=== PATIENT | female | born 1970 | race Two or more races ===

== ENCOUNTER 2023-05-29 11:07 | Outpatient (CLI) | payer OTHER | END 2023-05-29 11:13 | disposition home or self-care (01) | LOC: RAD 11:07 | PROVIDERS: ATTEND Orthopaedic Surgery | DX: M25.562 Pain in left knee (principal); M25.571 Pain in right ankle and joints of right foot ==

== ENCOUNTER 2024-06-17 09:34 | Emergency (ER) | payer OTHER ==
[~2024-06-17] VITALS: Ht 157.5 cm; Wt 83.9 kg
[2024-06-17 09:37] VITALS: BP 113/75; O2SAT 100
[2024-06-17] MEDS ORDERED: ZESTRIL20 MG (09:37)
[2024-06-17] MEDS ORDERED: 0.9 % SODIUM CHLORIDE 1,000 ML IV SCH (10:00)
[2024-06-17 10:13] LABS: HEMATOCRIT 41.3 % (36.0-45.00); HEMOGLOBIN 13.9 g/dL (12.0-15.00); MEAN CELL VOLUME 88.2 fL (80.00-100.00); MEAN CORPUSCULAR HEMOGLOBIN 29.6 pg (27.00-32.0); MEAN CORPUSCULAR HGB CONC 33.6 g/dl (32.0-36.0); PLATELET COUNT 271 K/uL (150-450); RED BLOOD COUNT 4.68 M/uL (4.00-6.00); RED CELL DISTRIBUTION WIDTH 15.6 % (11.5-14.5)
[2024-06-17 10:47] LABS: CALCIUM 8.9 mg/dL (8.5-10.1); CREATININE SERUM 0.71 mg/dL (0.55-1.02); GFR 85.15; POTASSIUM 3.95 mEq/L (3.5-5.1)
[2024-06-17 11:41] LABS: PH,URINE 5.5 (5.0-8.0); URINE APPEARANCE Cloudy; URINE BILIRRUBIN Small (NEGATIVE); URINE BLOOD Negative; URINE COLOR Dark Yellow; URINE GLUCOSE Negative (NEGATIVE); URINE KETONE Trace (NEGATIVE); URINE LEUKOCYTE Small; URINE NITRATE Positive; URINE PROTEIN Trace (NEGATIVE)
[2024-06-17 11:45] LABS: URINE RBC 69.2 uL (0.0-20.8); URINE WBC 83.7 uL (0.0-23.2)
[2024-06-17 12:41] LABS: URINE BACTERIA > 9821.5 uL (0.0-1933); URINE CAST 1.03 uL (0.0-1.40); URINE CRYSTALS FEW /HPF
== END 2024-06-17 19:53 | disposition home or self-care (01) ==
LOC: ER 09:36
PROVIDERS: Emergency Medicine
DX: K29.60 Other gastritis without bleeding (principal); I10 Essential (primary) hypertension